=== PATIENT | female | born 1990 | race Caucasian/White ===

== ENCOUNTER 2024-10-04 12:00 | Emergency (ER) | payer BC ==
[2024-10-04 12:06] VITALS: BP 154/99; PULSE 67; RESP 16; TEMP 98.5
--- NOTE | 2024-10-04 12:25 | ED ---
Abdominal Pain HPI - General Chief Complaint: Abdominal Pain Stated Complaint: Abd pain Time Seen by Provider: 10/04/24 12:08 Source: patient, RN notes reviewed Mode of arrival: ambulatory Limitations: no limitations - History of Present Illness Initial Comments: This is a 34-year-old female who presents to the emergency department for abdominal pain. A couple of weeks ago she found out she was having a miscarriage when she was about 5 weeks . She is continuing to have her hCG counts trended and states that she last had it checked 2 days ago and it was around 200. She has continued to have some light bleeding. About 20 minutes prior to arrival she developed sudden severe pain in the right lower pelvic region with an increase in vaginal bleeding. She wants to make sure she is not having an ectopic . While she was diagnosed with a miscarriage she has never had an ultrasound. Currently follows with [facility] in [place], [place]. Complaint: abdominal pain - Related Data Previous Rx's Medication Instructions Recorded HYDROcodone/APAP 5-325MG [Carson 1 tab PO Q6HR PRN 3 Days #12 tab 10/04/24 5-325] Ketorolac [Toradol] 10 mg PO Q6HR PRN #15 tab 10/04/24 Allergies Allergy/AdvReac Type Severity Reaction Status Date / Time No Known Allergies Allergy Verified 10/04/24 12:05 Review of Systems ROS Statement: Those systems with pertinent positive or pertinent negative responses have been documented in the HPI. ROS Other: All systems not noted in ROS Statement are negative. Past Medical History Additional Past Surgical History / Comment(s): 2021 Smoking Status: Never smoker Past Alcohol Use History: Occasional Past Drug Use History: None Reported General Exam Limitations: no limitations General appearance: alert, in no apparent distress Head exam: Present: atraumatic, normocephalic, normal inspection Respiratory exam: Present: normal lung sounds bilaterally. Absent: respiratory distress, wheezes, rales, rhonchi, stridor Cardiovascular Exam: Present: regular rate, normal rhythm, normal heart sounds. Absent: systolic murmur, diastolic murmur, rubs, gallop, clicks GI/Abdominal exam: Present: soft, tenderness (RLQ), normal bowel sounds. Absent: distended Neurological exam: Present: alert, oriented X3, CN II-XII intact Psychiatric exam: Present: normal affect, normal mood Skin exam: Present: warm, dry, intact, normal color. Absent: rash Course Vital Signs 10/04/24 12:03 Temperature 98.5 F Pulse Rate 67 Respiratory 16 Rate Blood Pressure 154/99 O2 Sat by Pulse 100 Oximetry Medical Decision Making - Medical Decision Making This is a 34-year-old female who presents to the emergency department for abdominal pain. Was pt. sent in by a medical professional or institution? @ -No Did you speak to anyone other than the patient for history? @ -No Did you review nursing and triage notes? @ -Yes, and I agree, it is accurate with regards to the patient's symptoms. Were old charts reviewed? @ -No Differential Diagnosis? @ -Differential Abdominal Pain Women: Appendicitis, Cholecystitis, diverticulosis, ischemic bowel, pancreatitis, hepatitis, UTI, gastroenteritis, AAA, incarcerated hernia, bowel obstruction, constipation, inflammatory bowel, hepatitis, peptic ulcer disease, splenic infarction, perforated viscus, vulvitis, ovarian torsion, PID, kidney stone, placenta abruption, this is not meant to be an all-inclusive list EKG interpreted by me (3pts min.)? @ -Not obtained X-rays interpreted by me (1pt min.)? @ -Not obtained CT interpreted by me (1pt min.)? @ -Not obtained U/S interpreted by me (1pt. min.)? @ -Transvaginal ultrasound obtained. My interpretation identifies a right a dnexa cystic structure. What testing was considered but not performed? (CT, X-rays, U/S, labs)? Why? @ -None What meds were considered but not given? Why? @ -None Did you discuss the management of the patient with other professionals? @ -No Did you reconcile home meds? @ -No Was smoking cessation discussed for >3mins.? @ -No Was critical care preformed (if so, how long)? @ -No Were there social determinants of health that impacted care today? How? (Homelessness, low income, unemployed, alcoholism, drug addiction, transportati on, low edu. Level, literacy, decrease access to med. care, long-term, rehab)? @ -No Was there de-escalation of care discussed even if they declined? (Discuss DNR or withdrawal of care, Hospice)? @ -No What co-morbidities impacted this encounter? (DM, HTN, Smoking, COPD, CAD, Cancer, CVA, Hep., AIDS, mental health diagnosis, sleep apnea, morbid obesity)? @ -None Was patient admitted / discharged? @ -Discharged. Lab work demonstrates a beta-hCG of 165 and is otherwise unremarkable. Urinalysis demonstrates a large amount of blood but is negative for signs of infection. Transvaginal ultrasound obtained demonstrating a thick- walled central cystic right adnexa/right ovary lesion with color flow concerning for ectopic . Case discussed with Dr. Willard, [facility]. She advised that this may just be a corpus luteum cyst and is not necessarily definitive for an ectopic. She advised that if her bleeding and pain were under control she should continue to have serial hCGs and follow-up with her [facility]. Her symptoms were well-controlled in the emergency department and her bleeding started to lighten up. She is scheduled to have her hCG repeated tomorrow and I advised she do so and follow-up with her [facility] for reevaluation. She was however given strict return parameters in the event this is an ectopic. Patient discharged home in stable condition. Case discussed with ED attending Dr. Gaston vargas. Return precautions reviewed in depth, the patient is instructed to return to the emergency department with any new, worsening, or concerning symptoms. Patient verbalized understanding. Undiagnosed new problem with uncertain prognosis? @ -None Drug Therapy requiring intensive monitoring for toxicity (Heparin, Nitro, Insulin, Cardizem)? @ -None Were any procedures done? @ -None Diagnosis/symptom? @ -Incomplete miscarriage, right ovarian cyst Acute, or Chronic, or Acute on Chronic? @ -Acute Uncomplicated (without systemic symptoms) or Complicated (systemic symptoms)? @ -Uncomplicated Side effects of treatment? @ -None Exacerbation, Progression, or Severe Exacerbation] @ -Not applicable Poses a threat to life or bodily function? @ -No - Lab Data Result diagrams: 10/04/24 12:35 10/04/24 12:35 Lab Results 10/04/24 10/04/24 10/04/24 Range/Units 12:35 12:35 12:35 WBC 8.8 (3.8-10.6) k/uL RBC 4.39 (3.80-5.40) m/uL Hgb 13.3 (11.4-16.0) gm/dL Hct 40.2 (34.0-46.0) % MCV 91.8 (80.0-100.0) fL MCH 30.3 (25.0-35.0) pg MCHC 33.1 (31.0-37.0) g/dL RDW 12.6 (11.5-15.5) % Plt Count 320 (150-450) k/uL MPV 6.9 Neutrophils % 62 % Lymphocytes % 26 % Monocytes % 7 % Eosinophils % 2 % Basophils % 1 % Neutrophils # 5.4 (1.3-7.7) k/uL Lymphocytes # 2.3 (1.0-4.8) k/uL Monocytes # 0.6 (0-1.0) k/uL Eosinophils # 0.1 (0-0.7) k/uL Basophils # 0.0 (0-0.2) k/uL Sodium 135 L (137-145) mmol/L Potassium 4.4 (3.5-5.1) mmol/L Chloride 103 (98-107) mmol/L Carbon Dioxide 21 L (22-30) mmol/L Anion Gap 11 mmol/L BUN 16 (7-17) mg/dL Creatinine 0.58 (0.52-1.04) mg/dL Est GFR (CKD-EPI)AfAm >90 (>60 ml/min/1.73 sqM) Est GFR (CKD-EPI)NonAf >90 (>60 ml/min/1.73 sqM) Glucose 99 (74-99) mg/dL Plasma Lactic Acid Anjel (0.7-2.0) mmol/L Calcium 10.4 H (8.4-10.2) mg/dL Total Bilirubin 0.6 (0.2-1.3) mg/dL AST 25 (14-36) U/L ALT 24 (4-34) U/L Alkaline Phosphatase 58 (38-126) U/L Total Protein 7.3 (6.3-8.2) g/dL Albumin 4.5 (3.5-5.0) g/dL HCG, Quant 165.0 mIU/mL Urine Color Light Yellow Urine Appearance Clear (Clear) Urine pH 5.5 (5.0-8.0) Ur Specific [place] 1.015 (1.001-1.035) Urine Protein Negative (Negative) Urine Glucose (UA) Negative (Negative) Urine Ketones Negative (Negative) Urine Blood Large H (Negative) Urine Nitrite Negative (Negative) Urine Bilirubin Negative (Negative) Urine Urobilinogen <2.0 (<2.0) mg/dL Ur Leukocyte Esterase Negative (Negative) Urine RBC >182 H (0-5) /hpf Urine WBC 11 H (0-5) /hpf Ur Squamous Epith Cells 1 (0-4) /hpf Blood Type Blood Type Confirm Blood Type Recheck Bld Type Recheck Status Antibody Screen Antibody Identification Direct Antiglob Test Spec Expiration Date 10/04/24 10/04/24 10/04/24 Range/Units 12:35 12:35 13:35 WBC (3.8-10.6) k/uL RBC (3.80-5.40) m/uL Hgb (11.4-16.0) gm/dL Hct (34.0-46.0) % MCV (80.0-100.0) fL MCH (25.0-35.0) pg MCHC (31.0-37.0) g/dL RDW (11.5-15.5) % Plt Count (150-450) k/uL MPV Neutrophils % % Lymphocytes % % Monocytes % % Eosinophils % % Basophils % % Neutrophils # (1.3-7.7) k/uL Lymphocytes # (1.0-4.8) k/uL Monocytes # (0-1.0) k/uL Eosinophils # (0-0.7) k/uL Basophils # (0-0.2) k/uL Sodium (137-145) mmol/L Potassium (3.5-5.1) mmol/L Chloride (98-107) mmol/L Carbon Dioxide (22-30) mmol/L Anion Gap mmol/L BUN (7-17) mg/dL Creatinine (0.52-1.04) mg/dL Est GFR (CKD-EPI)AfAm (>60 ml/min/1.73 sqM) Est GFR (CKD-EPI)NonAf (>60 ml/min/1.73 sqM) Glucose (74-99) mg/dL Plasma Lactic Acid Anjel 1.5 (0.7-2.0) mmol/L Calcium (8.4-10.2) mg/dL Total Bilirubin (0.2-1.3) mg/dL AST (14-36) U/L ALT (4-34) U/L Alkaline Phosphatase (38-126) U/L Total Protein (6.3-8.2) g/dL Albumin (3.5-5.0) g/dL HCG, Quant mIU/mL Urine Color Urine Appearance (Clear) Urine pH (5.0-8.0) Ur Specific [place] (1.001-1.035) Urine Protein (Negative) Urine Glucose (UA) (Negative) Urine Ketones (Negative) Urine Blood (Negative) Urine Nitrite (Negative) Urine Bilirubin (Negative) Urine Urobilinogen (<2.0) mg/dL Ur Leukocyte Esterase (Negative) Urine RBC (0-5) /hpf Urine WBC (0-5) /hpf Ur Squamous Epith Cells (0-4) /hpf Blood Type A Negative Blood Type Confirm A Negative Blood Type Recheck No Previous Record Bld Type Recheck Status CABO Indicated Antibody Screen POSITIVE Antibody Identification Anti-D Direct Antiglob Test Negative Spec Expiration Date 10/07/20242334 - Radiology Data Radiology results: report reviewed, image reviewed Disposition Clinical Impression: Incomplete miscarriage, Right ovarian cyst Disposition: HOME SELF-CARE Instructions (If sedation given, give patient instructions): Miscarriage (ED) Additional Instructions: Return to the emergency department with any new, worsening, or concerning symptoms. Your current hCG count is 165. Make sure you have it drawn tomorrow as scheduled to continue to trend these levels. Take the Toradol with Tylenol as needed for pain relief. If you choose to take the Toradol, do not take any other anti-inflammatories such as ibuprofen, take one or the other. Take the Carson sparingly when your pain is the most severe. Follow-up with your [facility] for reevaluation. Prescriptions: HYDROcodone/APAP 5-325MG [Carson 5-325] 1 tab PO Q6HR PRN 3 Days #12 tab PRN Reason: Pain Ketorolac [Toradol] 10 mg PO Q6HR PRN #15 tab PRN Reason: Pain Is patient prescribed a controlled substance at d/c from ED?: Yes When asked, does pt state using other controlled substances?: No If prescribed controlled substance>3 days was MAPS reviewed?: Prescribed <3 Days Referrals: Darian Cruz MD [Primary Care Provider] - 1-2 days Time of Disposition: :33
[2024-10-04] MEDS: KETOROLAC 15 MG/ML 1 ML VIAL IVP STA (12:39)
[2024-10-04] MEDS: SODIUM CHLORIDE 0.9% 1,000 ML IV STA (12:41)
[2024-10-04] MEDS: MORPHINE SULFATE 4 MG/ML SYRINGE IVP STA (12:41)
[2024-10-04 12:53] LABS: Basophils % (A) 1 %; Eosinophils # (A) 0.1 k/uL (0-0.7); Eosinophils % (A) 2 %; HCT 40.2 % (34.0-46.0); HGB 13.3 gm/dL (11.4-16.0); Lymphocytes # (A) 2.3 k/uL (1.0-4.8); Lymphocytes % (A) 26 %; MCH 30.3 pg (25.0-35.0); MCHC 33.1 g/dL (31.0-37.0); MCV 91.8 fL (80.0-100.0); Mean Platelet Volume 6.9; Monocytes # (A) 0.6 k/uL (0-1.0); Monocytes % (A) 7 %; Neutrophils # (A) 5.4 k/uL (1.3-7.7); Neutrophils % (A) 62 %; Platelet Count 320 k/uL (150-450); RBC 4.39 m/uL (3.80-5.40); RDW 12.6 % (11.5-15.5); WBC 8.8 k/uL (3.8-10.6)
[2024-10-04 12:59] LABS: Appearance,Urine Clear (Clear); Bilirubin,Urine Negative (Negative); Blood,Urine Large (Negative); Color,Urine Light Yellow; Glucose,Urine (UA) Negative (Negative); Ketones,Urine Negative (Negative); Leukocyte Esterase,Urine Negative (Negative); Nitrite,Urine Negative (Negative); PH, Urine 5.5 (5.0-8.0); Protein,Urine Negative (Negative); RBC,Urine >182 /hpf (0-5); Specific Gravity,Urine 1.015 (1.001-1.035); Squamous Epithelial Cell,Urine 1 /hpf (0-4); Urobilinogen,Urine <2.0 mg/dL (<2.0); WBC,Urine 11 /hpf (0-5)
[2024-10-04 13:08] LABS: ALT 24 U/L (4-34); African American GFR (CKD) >90 (>60 ml/min/1.73 sqM); Albumin 4.5 g/dL (3.5-5.0); Anion Gap 11 mmol/L; Blood Urea Nitrogen 16 mg/dL (7-17); Calcium 10.4 mg/dL (8.4-10.2); Carbon Dioxide 21 mmol/L (22-30); Chloride 103 mmol/L (98-107); Glucose 99 mg/dL (74-99); Non-African American GFR(CKD) >90 (>60 ml/min/1.73 sqM); Sodium 135 mmol/L (137-145); Total Bilirubin 0.6 mg/dL (0.2-1.3); Total Protein 7.3 g/dL (6.3-8.2)
[2024-10-04 13:09] LABS: AST 25 U/L (14-36); Alkaline Phosphatase 58 U/L (38-126); Potassium 4.4 mmol/L (3.5-5.1)
--- NOTE | 2024-10-04 14:02 | US ---
EXAMINATION TYPE: US transvaginal DATE OF EXAM: 10/04/2024 COMPARISON: NONE CLINICAL INDICATION: Female, 34 years old with history of Right sided pelvic pain; , Patient stat es she had a miscarriage 2 weeks ago and is now experiencing heavy vaginal bleeding and sharp right p elvic pain TECHNIQUE: Transvaginal (TV). Doppler imaging: Color Doppler Images were obtained. Spectral doppler images were obtained. FINDINGS: Date of LMP: 08/17/25 EXAM MEASUREMENTS: Uterus: 7.5 x 4.1 x 4.8 cm Endometrial Stripe: 0.72 cm Right Ovary: 5.2 x 2.9 x 4.9 cm Left Ovary: 3.0 x 1.8 x 2.5 cm 1. Uterus: Anteverted appears wnl 2. Endometrium: wnl 3. Right Ovary: Large, heterogenous area likely representing the ovary with focal hyperechoic circum scribed area measuring 2.0 x 1.5 x 2.2cm 4. Left Ovary: wnl Spectral, color and waveform doppler imaging shows good arterial and venous flow within the left ov kevyn; there is no evidence for ovarian torsion. 5. Bilateral Adnexa: Right adnexal mass versus enlarged right ovary. 6. Posterior cul-de-sac: Minimal free fluid noted Unremarkable anteverted appearance of the uterus without focal mass. Endometrium is within normal rogers its. Left ovary is unremarkable. Right ovary is enlarged in size with color flow identified. There is an ovoid thick-walled structure with central cystic region measuring 2.0 x 1.5 cm with peripheral co raúl flow identified within the region the right ovary/right adnexa. No visualized pole or yolk sac. Demonstrating Minimal free fluid identified within the posterior cul-de-sac. IMPRESSION: 1. Thick-walled central cystic right adnexa/right ovary lesion with color flow. Concerning for ectop ic . [facility] [employer] [facility] consultation is recommended. 2. Enlarged right ovary with color flow identified. No definitive evidence for torsion. Findings called to and discussed with LAINA Singh at 1:59 PM on 10/04/2024. [facility], , 10/04/2024 1:59 PM
== END 2024-10-04 15:08 | disposition home or self-care (01) ==
LOC: EC 12:00
DX: O03.4 Incomplete spontaneous abortion without complication (principal); N83.201 Unspecified ovarian cyst, right side
CPT/HCPCS: 36415; 86900; 86901; 80053; 83605; 85025; 86850; 86870; 86880; 81001; 84702; 76830; 99284; 96374; 96375; 96361; J2270; J1885

== ENCOUNTER → 2024-12-17 | Outpatient (CLI) | payer BC ==
--- NOTE | 2024-12-17 14:08 | CT ---
EXAMINATION TYPE: CT lumbar spine wo con DATE OF EXAM: 12/17/2024 1:43 PM COMPARISON: None CLINICAL INDICATION: Female, 34 years old with history of M54.50 LOW BACK PAIN, UNSPECIFIED; PHH, LOW BACK PAIN TECHNIQUE: Unenhanced CT of the lumbar spine was performed. Bone and soft tissue window settings are submitted as well as coronal and sagittal reconstructions. CT DLP: [address] CTDI: mGy Automated exposure control for dose reduction was used. FINDINGS: The lumbar vertebral segments are normal in height and alignment and there is no fracture or subluxat ion. The L1-2, L2-3 and L3-4 discs are well preserved in height with no significant disc degeneration. There is moderate disc space narrowing, mild discogenic endplate changes and spondylosis of the L4-5 disc. Moderate degenerative disease. There is mild disc space narrowing at the L5-S1 level indicating mild degenerative disease. Some mild broadbase central disc protrusion L4-5 disc causing mild mass effect on the ventral aspect of thecal sac. Minimal broad-based protrusion is evident at the L5-S1 level. There is no significant spinal stenosis or bony neural foraminal encroachment. Facet joints are intact. There is no spondylolysis or spondylolisthesis. IMPRESSION: 1. Lumbar vertebral segments are normal in both height and alignment. 2. Moderate degenerative disc disease at the L4-5 level and mild degenerative disease at the L5-S1 le maria luisa. 3. Mild broad-based central disc protrusions at the L4-5 and L5-S1 levels. 4. No lumbar disc herniation, spinal stenosis or bony neural foraminal stenosis. [facility], , 12/17/2024 2:05 PM
== END | disposition home or self-care (01) ==
LOC: RADCTMAIN 13:19
PROVIDERS: ATTEND Family Medicine
DX: M51.360 Other intervertebral disc degeneration, lumbar region with discogenic back pain only (principal); M51.372 Other intervertebral disc degeneration, lumbosacral region with discogenic back pain and lower extremity pain; M51.27 Other intervertebral disc displacement, lumbosacral region
CPT/HCPCS: 72131

== ENCOUNTER → 2024-12-30 | Outpatient (CLI) | payer BC ==
--- NOTE | 2024-12-30 15:05 | USB ---
Reason for Exam: Clinical finding. Technique: Method: Targeted. Findings: The area of palpable concern of the right breast, the axilla of the right breast and the retroareolar of the right breast were scanned. Targeted ultrasound is performed. In the dermal layer there is a nonspecific thin-walled nonsimple oval-shaped fluid collection measuring 1.6 x 0.3 cm 8 o'clock position 4 cm distance from nipple. Given patient's history findings favor resolving infection or tiny abscess. No concerning solid or cystic masses are present. Overall Assessment: Benign, BI-RAD 2 Management: Screening Mammogram of both breasts at age 41. Manage clinically. A clinical breast exam by your physician is recommended on an annual basis and results should be correlated with mammographic findings. This exam should not preclude additional follow-up of suspicious palpable abnormalities. Results were given to the patient verbally at the time of exam. [facility], , 12/30/2024 3:01 PM. Electronically signed and approved by: Bereket Jacob M.D.
== END | disposition home or self-care (01) ==
LOC: RADUSWWP 14:41
PROVIDERS: ATTEND Family Medicine
DX: N63.10 Unspecified lump in the right breast, unspecified quadrant (principal)

== ENCOUNTER → 2025-03-23 | Outpatient (CLI) | payer BC ==
--- NOTE | 2025-03-26 00:52 | MR ---
EXAMINATION TYPE: MR lumbar spine wo con DATE OF EXAM: 03/23/2025 6:40 PM COMPARISON: None. CLINICAL INDICATION: Female, 34 years old with history of M54.16 RADICULOPATHY, LUMBAR REGION, Low ba ck pain into both sides but Left side is worse, Pain is worse at night TECHNIQUE: Multiplanar, multisequence images of the lumbar spine were acquired. IV Contrast: mL (None, if empty) FINDINGS: Cord ends at the L1-L2 level. L5-S1: There is mild narrowing of disc height to this level. No focal disc herniation or significant disc bulge. No spinal canal stenosis or neural foraminal stenosis. L4-L5: There is loss of disc height is normal. No focal disc herniation or significant disc bulge. No spinal canal stenosis or neural foraminal stenosis L3-L4: No focal disc herniation or significant disc bulge. No spinal canal stenosis. Neural foramen are patent. L2-L3: No focal disc herniation or significant disc bulge. No spinal canal stenosis. Neural foramen are patent. L1-L2: No focal disc herniation or significant disc bulge. No spinal canal stenosis. Neural foramen are patent. T12-L1: No focal disc herniation or significant disc bulge. No spinal canal stenosis. Neural forame n are patent. T12-L1 through L3-4 disc heights and hydration are preserved. IMPRESSION: 1. Degenerative disc changes with loss of disc height and endplate changes at all 4 5. 2. Mild narrowing of the L5-S1 disc height. [facility], , 03/26/2025 12:49 AM
== END | disposition home or self-care (01) ==
LOC: RADMRIMAIN 17:57
PROVIDERS: ATTEND Family Medicine
DX: M48.061 Spinal stenosis, lumbar region without neurogenic claudication (principal); M47.26 Other spondylosis with radiculopathy, lumbar region
CPT/HCPCS: 72148